=== PATIENT | female | born 1950 | race Caucasian/White ===

== ENCOUNTER 2017-03-30 09:50 | Day surgery (SDC) | payer MEDICARE ==
[~2017-03-30] VITALS: Ht 162.6 cm; Wt 77.7 kg
[2017-03-30] MEDS ORDERED: fentaNYL/PF 50MCG/1 ML 2ML syringe ONE ×2 (09:59→12:26)
[2017-03-30] MEDS ORDERED: MIDAZolam 1mg/ml 10ml vial ONE (09:59)
[2017-03-30] MEDS ORDERED: LIDOcaine Viscous 15ml cup ONE (09:59)
[2017-03-30] MEDS ORDERED: ASPI-1264 PO (10:12)
[2017-03-30] MEDS ORDERED: LEVO125T PO (10:12)
[2017-03-30] MEDS ORDERED: HYDR-565 PO (10:12)
[2017-03-30] MEDS ORDERED: FURO40TA4 PO (10:12)
[2017-03-30] MEDS ORDERED: TRIA10.8 (10:12)
[2017-03-30] MEDS ORDERED: METO1TAB25 PO (10:12)
[2017-03-30] MEDS ORDERED: LORA1TAB PO (10:12)
[2017-03-30 10:26] VITALS: BP 159/98
[2017-03-30] MEDS ORDERED: iohexol 300 MG/1 ML 50ml polymer ONE (11:56)
[2017-03-30] MEDS ORDERED: triamcinolone acetonide 40mg/ml inj ONE (12:04)
[2017-03-30 12:30] VITALS: BP 154/102
[2017-03-30 12:40] VITALS: BP 133/97
[2017-03-30 12:50] VITALS: BP 148/78
[2017-03-30 13:00] VITALS: BP 154/101
== END 2017-03-30 13:15 | disposition home or self-care (01) ==
LOC: GI LAB 09:50
PROVIDERS: ATTEND Internal Medicine Gastroenterology
DX: R13.10 Dysphagia, unspecified (principal)
CPT/HCPCS: 43236; 43248; 74018; 76000; 99153; G0500; J2250; J3010; J3301; J7030; A4620; Q9967